=== PATIENT | female | born 1950 | race Two or more races ===

== ENCOUNTER → 2024-07-28 | Outpatient (CLI) | payer OTHER, MEDICAID ==
[~2024-07-28] VITALS: Ht 157.5 cm; Wt 111.6 kg
[2024-07-28] MEDS: REGADENOSON 0.4 MG/5 ML SYRG IV ONE ×2 (11:40)
--- NOTE | 2024-07-28 13:19 | DVHSR ---
APPROVED REPORT Exam: Nuclear Stress Test BMI: 0 Stress Test Details HR Max Heart Rate (APMHR): 145.613720 bpm Target HR (85% APMHR): 123.148248 bpm BP ECG Stress ECG Conclusion Resting images shows near homogeneous uptake of radioactive tracer throughout the myocardium without evidence of myocardial infarction. Stress images shows near homogeneous uptake of radioactive tracer throughout the myocardium without e vidence of myocardial ischemia. Well-preserved left ventricular systolic function at 80%. Impression: Negative stress test for ischemia, low risk study. NM EXAM: Myocardial Perfusion REST/STRESS Imaging Protocol: Rest Tc-99m/Stress Tc-99m 1 day Resting Data Rest SPECT myocardial perfusion imaging was performed in supine position 60 minutes following the int ravenous injection of 14 mCi of Tc-99m Sestamibi. Time of rest injection: 1015 Date: 07/28/2024 Time of rest imagin Date: 07/28/2024 Administration Route: IV Administration Site: Right Wrist Pharmacologic Stress Pharmacologic stress test was performed by injecting Regadenoson 0.4 mg IV push followed by the intra venous injection of 38 mCi of Tc-99m Sestamibi. Time of stress injection: 1135 Date: 07/28/2024 Time of stress imagin Date: 07/28/2024 Administration Route: IV Administration Site: Right Wrist Gated Stress SPECT was performed 60 minutes after stress injection. The images were gated to evaluate regional wall motion and calculate left ventricular ejection fracti on. Stress only was performed in the Supine position. Nuclear Conclusion ECG Findings: negative for ischemia Clinical Findings: negative for ischemia Nuclear Findings: negative for ischemia Exercise Capacity: not assessed Left Ventricular Function: normal Risk Study: low Resting images shows near homogeneous uptake of radioactive tracer throughout the myocardium without evidence of myocardial infarction. Stress images shows near homogeneous uptake of radioactive tracer throughout the myocardium without e vidence of myocardial ischemia. Well-preserved left ventricular systolic function at 80%. Impression: Negative stress test for ischemia, low risk study.
== END | disposition home or self-care (01) ==
LOC: XYW 10:15
PROVIDERS: ATTEND Specialist
DX: Z01.810 Encounter for preprocedural cardiovascular examination (principal); R06.02 Shortness of breath; I25.10 Atherosclerotic heart disease of native coronary artery without angina pectoris
CPT/HCPCS: 78452; 93017; A9500; J2785